=== PATIENT | female | born 1935 | race Caucasian/White ===

== ENCOUNTER 2017-08-24 19:36 | Emergency (ER) | payer MEDICARE, BC ==
[~2017-08-24] VITALS: Ht 157.5 cm; Wt 61.2 kg
[2017-08-24] MEDS ORDERED: FERROUS SULFATE 325 MG (20:10)
[2017-08-24] MEDS ORDERED: LAMOTRIGINE 100 MG (20:10)
[2017-08-24] MEDS ORDERED: CLINDAMYCIN HCL 150 MG CAPSULE PO ONE (20:15)
--- NOTE | 2017-08-24 20:28 | NUR ---
Patient discharged to home in stable conditon. Written and verbal after care instructions given. Patient verbalizes understanding of instructions.
[2017-08-24] MEDS ORDERED: CLINDAMYCIN HCL 300 MG CAPSULE ONE (20:36)
[2017-09-02] MEDS ORDERED: LACT1CAP57 PO (11:43)
[2017-09-02] MEDS ORDERED: LISI1TAB9 PO (11:45)
== END 2017-08-24 20:29 | disposition home or self-care (01) ==
LOC: ER 19:36
DX: L03.211 Cellulitis of face (principal); Z88.6 Allergy status to analgesic agent
CPT/HCPCS: 99283; A4663

== ENCOUNTER 2017-08-27 00:28 | Inpatient (IN) | payer MEDICARE, BC ==
[~2017-08-27] VITALS: Ht 157.5 cm; Wt 62.3 kg
[~2017-08-27 00:28] MED LIST: FERROUS SULFATE 325 MG; LAMOTRIGINE 100 MG
[2017-08-27] MEDS ORDERED: CLIN300C11 PO (00:42)
--- NOTE | 2017-08-27 01:00 | NUR ---
PATIENT WALKED INTO ER C/O LEFT CHIN CELLULITIS. PATIENT WAS SEEN HERE ON 08/24/17 FOR SAME COMPLAINT.CAME BACK FOR REDNESS AND SWELLING WORSENING
[2017-08-27] MEDS ORDERED: TDAP DIPH,PERTUSS,TET VAC/PF 0.5 ML DISP.SYRIN IM ONE ×2 (01:15→01:29)
[2017-08-27] MEDS ORDERED: VANCOMYCIN 1G/D5W 200 ML PIGGYBACK IV ONE (01:15)
[2017-08-27] MEDS ORDERED: CLINDAMYCIN PHOSPHATE IV 900 MG in IV DEXTROSE 5% 100 ML IV ONE (01:15)
[2017-08-27] MEDS ORDERED: CLINDAMYCIN PHOSPHATE 900 MG/6 ML VIAL ONE (01:27)
[2017-08-27 01:32] LABS: CARBON DIOXIDE 30 mmol/L (21-32); CHLORIDE 101 mmol/L (98-107); CREATININE 0.7 mg/dL (0.6-1.3); GLUCOSE 104 mg/dL (74-106); POTASSIUM 3.5 mmol/L (3.5-5.1); UREA NITROGEN, BLOOD 12 mg/dL (7-18)
[2017-08-27 01:37] LABS: ALANINE AMINOTRANSFERASE 16 U/L (14-59); ALKALINE PHOSPHATASE 70 U/L (50-136); ASPARTATE AMINOTRANSFERASE 11 U/L (15-37); BILIRUBIN,DIRECT 0.1 mg/dL (0.0-0.2); BILIRUBIN,TOTAL 0.4 mg/dL (0.2-1.0); TOTAL PROTEIN, SERUM 8.2 g/dL (6.4-8.2)
[2017-08-27 01:42] LABS: BASOPHILS % (AUTO) 0.5 % (0.0-2.0); EOSINOPHILS # (AUTO) 0.2 K/uL (0.0-0.7); EOSINOPHILS % (AUTO) 1.9 % (0.0-7.0); HEMATOCRIT 41.9 % (37-47); HEMOGLOBIN 14.3 G/DL (12.0-16.0); LYMPHOCYTES # (AUTO) 2.2 K/UL (0.8-4.8); LYMPHOCYTES % (AUTO) 23.4 % (20.5-51.5); MEAN CORPUSCULAR HEMOGLOBIN 30.4 UUG (27.0-31.0); MEAN CORPUSCULAR HGB CONC 34 g/dL (32.0-37.0); MEAN CORPUSCULAR VOLUME 89.1 FL (81.0-99.0); MONOCYTES # (AUTO) 0.6 K/UL (0.1-1.30); MONOCYTES % (AUTO) 6.6 % (0.0-11.0); NEUTROPHILS # (AUTO) 6.5 K/UL (1.8-8.9); NEUTROPHILS % (AUTO) 67.6 % (38.5-71.5); PLATELET COUNT (AUTO) 315 K/UL (150-450); RED BLOOD CELL COUNT(AUTO) 4.71 MIL/UL (4.2-5.4); WHITE BLOOD COUNT (AUTO) 9.5 K/UL (4.0-11.2)
[2017-08-27] MEDS ORDERED: VANCOMYCIN IV 200 ML ONE (01:52)
[2017-08-27] MEDS ORDERED: IOHEXOL 300MG/ML 100 ML INFUS..BTL ONE (02:12)
[2017-08-27] MEDS ORDERED: IV NORMAL SALINE 250 ML IV ONE (02:12)
--- NOTE | 2017-08-27 03:18 | NUR ---
TRANSFERED TO 2ND FLOOR MED SURG VIA WHEELCHAIR
--- NOTE | 2017-08-27 03:25 | NUR ---
RECEIVED PATIENT FROM ER VIA WHEELCHAIR. PATIENT IS ALERT, RESPONSIVE, AMBULATORY, IN NO ACUTE DISTRESS. PATIENT IS ADMITTED TO MED SURG UNDER THE CARE OF NAYLA MOMIN DNP. DX: FACIAL CELLULITIS. BELONGING LIST DONE. ADMISSION PROCESS AND CARE PLAN INITIATED. SAFETY MEASURES IN PLACE. WILL CALL MD FOR NEW ADMISSION ORDERS.
[2017-08-27 03:30] VITALS: BP 159/82
[2017-08-27] MEDS ORDERED: MORPHINE SULFATE 2 MG/1 ML DISP.SYRIN IV PRN (04:00)
[2017-08-27] MEDS ORDERED: PIPERACILLIN/TAZOBACTAM/D5W 50 ML IV SCH (04:00)
[2017-08-27] MEDS ORDERED: Z GUARD REMEDY PASTE 57 GM TUBE TOP PRN (04:00)
[2017-08-27] MEDS ORDERED: ZOLPIDEM 5 MG TABLET PO PRN (04:00)
[2017-08-27] MEDS ORDERED: ONDANSETRON 4 MG/2 ML VIAL IV PRN (04:00)
[2017-08-27] MEDS ORDERED: PIPERACILLIN/TAZOBACTAM/D5W 50 ML IV ONE (05:00)
--- NOTE | 2017-08-27 06:37 | NUR ---
PT SLEPT INTERMITTENTLY, IN NO ACUTE DISTRESS. PER PATIENT, SHE HAS BEEN TAKING LAMOTRIGINE FOR SEIZURES. PATIENT STATED THAT SHE DID NOT MENTION HER HISTORY OF SEIZURES WHILE SHE WAS ADMITTED IN THE ER. SEIZURE PRECAUTION IN PLACE. WILL MONITOR AND ENDORSE TO ONCOMING SHIFT RN.
--- NOTE | 2017-08-27 07:20 | NUR ---
Received report from slot shift supervisor nurse, patient in bed asleep, no evidence of distress noted. Bed in low position, side rails up x2, bed alarm on.
[2017-08-27] MEDS ORDERED: KETOROLAC TROMETHAMINE 15 MG INJ IVP PRN (09:45)
[2017-08-27 11:22] VITALS: BP 133/31
[2017-08-27] MEDS: PIPERACILLIN/TAZOBACTAM/D5W 50 ML IV SCH ×2 (12:00→18:29)
[2017-08-27] MEDS ORDERED: FERR325T6 PO (15:20)
[2017-08-27] MEDS ORDERED: [UNRECOGNIZED DRUG - CODE] PO (15:20)
[2017-08-27 15:44] VITALS: BP 132/73
--- NOTE | 2017-08-27 17:15 | NUR ---
DR BRAGG ID PHYSICIAN VISITED PATIENT. WAS NOTIFIED THAT THE DAUGHTER WANTED TO SPEAK WITH HIM IN ORDER TO GIVE A COMPLETE HISTORY PATIENT IS VERY FORGETFUL AT TIMES.
--- NOTE | 2017-08-27 19:30 | NUR ---
Received patient laying comfortably on bed. HOB elevated. No acute distress noted. A&O x 4. Noted Red lump on the chin, no c/o of pain at the moment. No drainage coming from the lump. IV access on the Left AC patent and intact. Patient is ambulatory. Safety initiated. Call light within reach. Will continue to monitor.
[2017-08-27 20:00] VITALS: BP 137/70
[2017-08-28] MEDS: PIPERACILLIN/TAZOBACTAM/D5W 50 ML IV SCH ×4 (00:04→17:31)
--- NOTE | 2017-08-28 05:58 | NUR ---
No changes t/o shift. No acute distress noted. Patient slept t/o shift. Patient accidentally scratch a small red bump on chin, was able to collect a specimen for cx. Vital signs stable. IV on the left AC got dislodge, reinserted a new one on the left wrist. All meds given as ordered. All needs met. Safety and comfort measures maintained t/o shift.
[2017-08-28 06:10] VITALS: BP 125/73
--- NOTE | 2017-08-28 07:15 | NUR ---
RECEIVED REPORT FROM LOOM BLOWER NURSE, PATIENT IN BED ASLEEP, NO EVIDENCE OF DISTRESS NOTED, BED IN LOW POSITION SIDE RAILS UP X2.
[2017-08-28 07:49] LABS: CARBON DIOXIDE 30 mmol/L (21-32); CHLORIDE 107 mmol/L (98-107); CHOLESTEROL 145 mg/dL (<200); CREATININE 0.8 mg/dL (0.6-1.3); GLUCOSE 94 mg/dL (74-106); HDL CHOLESTEROL 71 mg/dL (40-60); MAGNESIUM 2.1 mg/dL (1.8-2.4); PHOSPHOROUS 3.5 mg/dL (2.5-4.9); POTASSIUM 3.8 mmol/L (3.5-5.1); TRIGLYCERIDES 48 MG/DL (30-150); UREA NITROGEN, BLOOD 13 mg/dL (7-18)
[2017-08-28 07:55] LABS: BASOPHILS # (AUTO) 0.1 K/uL (0.0-8.0); EOSINOPHILS # (AUTO) 0.3 K/uL (0.0-0.7); EOSINOPHILS % (AUTO) 4.3 % (0.0-7.0); HEMATOCRIT 35.2 % (31.2-41.9); HEMOGLOBIN 12.3 g/dL (10.9-14.3); LYMPHOCYTES # (AUTO) 1.8 K/uL (20.0-40.0); LYMPHOCYTES % (AUTO) 29.7 % (20.5-51.5); MEAN CORPUSCULAR HEMOGLOBIN 30.4 uug (24.7-32.8); MEAN CORPUSCULAR HGB CONC 35 g/dL (32.3-35.6); MEAN CORPUSCULAR VOLUME 86.8 fL (75.5-95.3); MONOCYTES # (AUTO) 0.5 K/uL (2.0-10.0); MONOCYTES % (AUTO) 7.9 % (0.0-11.0); NEUTROPHILS # (AUTO) 3.5 K/uL (1.8-8.9); NEUTROPHILS % (AUTO) 57.1 % (38.5-71.5); PLATELET COUNT (AUTO) 245 K/uL (179-408); RED BLOOD CELL COUNT(AUTO) 4.06 MIL/uL (3.63-4.92)
[2017-08-28 07:57] LABS: THYROID STIMULATING HORMONE 2.439 mIU/mL (0.358-3.740); WHITE BLOOD COUNT (AUTO) 6.2 K/uL (3.8-11.8)
[2017-08-28] MEDS: VANCOMYCIN IV 1 G in PREMIXED 0 EACH IV SCH (08:00)
[2017-08-28 08:17] LABS: ALANINE AMINOTRANSFERASE 14 U/L (14-59); ALKALINE PHOSPHATASE 52 U/L (50-136); ASPARTATE AMINOTRANSFERASE 12 U/L (15-37); BILIRUBIN,TOTAL 0.4 mg/dL (0.2-1.0); TOTAL PROTEIN, SERUM 6.3 g/dL (6.4-8.2)
--- NOTE | 2017-08-28 09:50 | NUR ---
Clinical pharmacy note-Vancomycin dosing per pharmacy Subjective: Start Vancomycin dosing on this 82 yo female patient for abscess. patient recieved vanco 1gm on 08/27 at 0200. Objective: BUN 12 Scr 0.7 WBC 9.5 Temp 98.4 Assessment/Plan; Will start vanco 1000 mg IVPB q28hr for predicted vanco trough level of 16 mcg/ml at steady state. 1st dose is due today at 0800. Will check vanco trough level before 4th dose (not yet ordered). Will monitor renal function & adjust the dose if needed. will continue to follow up.
--- NOTE | 2017-08-28 11:00 | NUR ---
PATIENT APPEARS TO BE AGITATED, ALSO APPEARS TO BE CONFUSED ABOUT MEDICATIONS THAT SHE HAD ALREADY TAKEN. PATIENT DOES NOT UNDERSTAND WHY SHE IS STILL HERE AFTER BEING EXPLAINED IT MULTIPLE TIMES.
[2017-08-28 11:17] VITALS: BP 162/54
[2017-08-28] MEDS: LAMOTRIGINE 100 MG TABLET PO SCH ×2 (14:14→20:45)
[2017-08-28] MEDS: FERROUS SULFATE 325 MG TABEC PO SCH (14:14)
[2017-08-28 14:19] LABS: *BILIRUBIN,URIN NEGATIVE (NEGATIVE); *BLOOD, URINE NEGATIVE (NEGATIVE); *CLARITY,URINE CLEAR (CLEAR); *COLOR,URINE YELLOW (YELLOW); *KETONES,URINE NEGATIVE (NEGATIVE); *PROTEIN,URINE NEGATIVE (NEGATIVE); *UROBILINOGEN,URINE 0.2 E.U./dl (NORMAL); LEUKOCYTE ESTERASE ,URINE TRACE (NEGATIVE); NITRITE, URINE NEGATIVE (NEGATIVE); UGLUCOSE NEGATIVE (NEGATIVE)
[2017-08-28 14:29] LABS: BACTERIA,URINE NONE SEEN /HPF (NONE SEEN); RBC,URINE 0-3 /HPF (0-3); SQUAMOUS EPITHELIAL CELL,UR FEW /HPF (NONE SEEN)
[2017-08-28 15:07] VITALS: BP 149/74
--- NOTE | 2017-08-28 18:13 | NUR ---
PATIENT APPEARS TO BE CALMER THIS EVENING, READING A BOOK AND DRINKING HER COFFEE. BED IN LOW POSITION, SIDE RAILS UP X2. NO EVIDENCE OF DISTRESS NOTED AT THIS TIME.
--- NOTE | 2017-08-28 19:30 | NUR ---
Received patient laying comfortably in bed. No acute distress noted. Patient is reading a book. No C/O pain or discomfort. Noted bump on the left chin and lower chin. Safety initiated. Call light within reach. Will continue to monitor.
[2017-08-28 20:00] VITALS: BP 166/81
[2017-08-28] MEDS: LACTOBACILLUS RHAMNOSUS GG 1 EACH CAPSULE PO SCH (20:43)
--- NOTE | 2017-08-28 21:30 | NUR ---
Plastic Surgeon Dr. Burks at bedside.
[2017-08-29] MEDS: PIPERACILLIN/TAZOBACTAM/D5W 50 ML IV SCH ×4 (00:49→20:55)
--- NOTE | 2017-08-29 06:05 | NUR ---
No changes t/o shift. Patient slept intermittently t/o shift. No acute distress noted. No C/O pain or discomfort at this time. IV access on the Left wrist patent and intact. Urinating well. Vital signs stable. All meds given as ordered. All needs met.
[2017-08-29 07:00] LABS: BASOPHILS % (AUTO) 0.7 % (0.0-2.0); EOSINOPHILS # (AUTO) 0.3 K/uL (0.0-0.7); EOSINOPHILS % (AUTO) 5.4 % (0.0-7.0); HEMATOCRIT 35.3 % (37-47); HEMOGLOBIN 12.1 G/DL (12.0-16.0); LYMPHOCYTES # (AUTO) 1.7 K/UL (0.8-4.8); MEAN CORPUSCULAR HEMOGLOBIN 29.8 UUG (27.0-31.0); MEAN CORPUSCULAR HGB CONC 34 g/dL (32.0-37.0); MEAN CORPUSCULAR VOLUME 87.2 FL (81.0-99.0); MONOCYTES # (AUTO) 0.5 K/UL (0.1-1.30); MONOCYTES % (AUTO) 8.5 % (0.0-11.0); NEUTROPHILS % (AUTO) 54.4 % (38.5-71.5); PLATELET COUNT (AUTO) 253 K/UL (150-450); RED BLOOD CELL COUNT(AUTO) 4.05 MIL/UL (4.2-5.4); WHITE BLOOD COUNT (AUTO) 5.5 K/UL (4.0-11.2)
[2017-08-29 07:04] VITALS: BP 142/65
[2017-08-29 07:04] LABS: CARBON DIOXIDE 30 mmol/L (21-32); CHLORIDE 108 mmol/L (98-107); CREATININE 0.7 mg/dL (0.6-1.3); GLUCOSE 90 mg/dL (74-106); POTASSIUM 3.6 mmol/L (3.5-5.1); UREA NITROGEN, BLOOD 14 mg/dL (7-18)
--- NOTE | 2017-08-29 07:15 | NUR ---
RECEIVED REPORT FROM OPTICAL MANAGER NURSE, PATIENT IN BED AWAKE, NO EVIDENCE OF DISTRESS NOTED. BED IN LOW POSITION, SIDE RAILS UP X2.
[2017-08-29] MEDS: LACTOBACILLUS RHAMNOSUS GG 1 EACH CAPSULE PO SCH ×2 (08:24→20:55)
[2017-08-29] MEDS: FERROUS SULFATE 325 MG TABEC PO SCH (08:24)
[2017-08-29] MEDS: LAMOTRIGINE 100 MG TABLET PO SCH ×2 (08:27→18:45)
--- NOTE | 2017-08-29 08:27 | NUR ---
PATIENT REFUSED TO TAKE THE LAMOTRIGINE BECAUSE SHE STATES THAT SHE TAKES IT AT NIGHT OR SHE HAS ILL EFFECTS DURING THE DAY.
[2017-08-29] MEDS: VANCOMYCIN IV 1 G in PREMIXED 0 EACH IV SCH (12:00)
[2017-08-29 12:03] VITALS: BP 166/79
--- NOTE | 2017-08-29 14:19 | NUR ---
Clinical pharmacy note-Vancomycin dosing per pharmacy Subjective: To continue Vancomycin dosing on this 82 yo female patient for abscess. patient recieved vanco 1gm on 08/27 at 0200. Objective: BUN 14 Scr 0.7 WBC 5.5 Temp 98 Assessment/Plan; Will continue vanco 1000 mg IVPB q28hr for predicted vanco trough level of 16 mcg/ml at steady state. 2nd dose due today at 1200. Will check vanco trough level before 4th dose (not yet ordered). Will monitor renal function & adjust the dose if needed. will continue to follow up.
[2017-08-29 16:14] VITALS: BP 180/88
[2017-08-29] MEDS: hydrALAZINE HCL 25 MG TABLET PO PRN ×2 (17:13→20:57)
--- NOTE | 2017-08-29 19:30 | NUR ---
PT RECEIVED IN CHAIR, AWAKE. A/OX4. ABLE TO MAKE NEEDS KNOWN. BP ELEVATED AT 160/77. BP MED GIVEN AT 1700. WILL ADMIN HYDRALAZINE ORDERED, WHEN DUE. NO ACUTE DISTRESS NOTED. NO C/O PAIN AT THIS TIME. IV FOUND INFILTRATED, NEW IV START NEEDED. ISOLATION PRECAUTIONS IN PLACE, MRSA NARES. SAFETY MEASURES IMPLEMENTED. CALL LIGHT WITHIN REACH.
--- NOTE | 2017-08-29 19:40 | NUR ---
PATIENT HAS BEEN COOPERATIVE WITH CARE, AND IN BETTER SPIRITS TODAY. PATIENT IS AMBULATING IN ROOM. NEW IV PLACED AND FLUSHED.
[2017-08-29 20:43] VITALS: BP 160/77
[2017-08-29] MEDS: MUPIROCIN 2% OINT 22 GM TUBE NS SCH (20:55)
[2017-08-30] MEDS: PIPERACILLIN/TAZOBACTAM/D5W 50 ML IV SCH ×5 (00:39→23:03)
[2017-08-30 04:00] VITALS: BP 141/65
[2017-08-30 06:26] LABS: BASOPHILS % (AUTO) 0.7 % (0.0-2.0); EOSINOPHILS # (AUTO) 0.3 K/uL (0.0-0.7); EOSINOPHILS % (AUTO) 5.6 % (0.0-7.0); HEMATOCRIT 34.1 % (37-47); HEMOGLOBIN 11.5 G/DL (12.0-16.0); LYMPHOCYTES # (AUTO) 1.8 K/UL (0.8-4.8); LYMPHOCYTES % (AUTO) 30.1 % (20.5-51.5); MEAN CORPUSCULAR HEMOGLOBIN 30.1 UUG (27.0-31.0); MEAN CORPUSCULAR HGB CONC 34 g/dL (32.0-37.0); MEAN CORPUSCULAR VOLUME 89.2 FL (81.0-99.0); MONOCYTES # (AUTO) 0.5 K/UL (0.1-1.30); NEUTROPHILS # (AUTO) 3.3 K/UL (1.8-8.9); NEUTROPHILS % (AUTO) 54.6 % (38.5-71.5); PLATELET COUNT (AUTO) 268 K/UL (150-450); RED BLOOD CELL COUNT(AUTO) 3.82 MIL/UL (4.2-5.4); WHITE BLOOD COUNT (AUTO) 5.9 K/UL (4.0-11.2)
[2017-08-30 06:36] LABS: CARBON DIOXIDE 29 mmol/L (21-32); CHLORIDE 107 mmol/L (98-107); CREATININE 0.7 mg/dL (0.6-1.3); GLUCOSE 101 mg/dL (74-106); POTASSIUM 3.6 mmol/L (3.5-5.1); UREA NITROGEN, BLOOD 13 mg/dL (7-18)
--- NOTE | 2017-08-30 06:45 | NUR ---
END OF SHIFT NOTES. PT SLEPT WELL THROUGHOUT SHIFT. IN STABLE CONDITION. IV ABX INFUSED. ISOLATION MAINTAINED. ALL NEEDS ATTENDED. SAFETY MAINTAINED. CALL LIGHT WITHIN REACH.
--- NOTE | 2017-08-30 08:00 | NUR ---
RECEIVED PATIENT AWAKE ALERT AND ORIENTED.SHE IS CURRENTLY ON CONTACT ISOLATION AND PRECAUTION FOR MRSA IN HER NARES EDUCATED AND SHE EXPRESSED UNDERSTANDING.REMAIN ON ATB ORDERED WITH NO ADVERSE OR ALLERGIC REACTIONS AT THIS TIME.TOLERATING HER DIET ORDERED WITH NO C/O PAIN AT THIS TIME MADE COMFORTABLE AND WILL CONTINUE TO OBSERVE.
[2017-08-30] MEDS: LACTOBACILLUS RHAMNOSUS GG 1 EACH CAPSULE PO SCH ×2 (08:52→21:06)
[2017-08-30] MEDS: FERROUS SULFATE 325 MG TABEC PO SCH (08:52)
[2017-08-30] MEDS: MUPIROCIN 2% OINT 22 GM TUBE NS SCH ×2 (09:05→21:08)
[2017-08-30 11:49] VITALS: BP 141/67
--- NOTE | 2017-08-30 14:00 | NUR ---
PATIENTS DAUGHTER YANA HERE SPOKE WITH DR SNIDER AT LENGTH PATIENT REMAIN ON IV ANTIBIOTICS ORDERED WITH NO ADVERSE OR ALLERGIC REACTIONS AT THIS TIME APPETITE IS GOOD FOR MEALS.
--- NOTE | 2017-08-30 15:18 | NUR ---
Clinical pharmacy note-Vancomycin dosing per pharmacy Subjective: To continue Vancomycin dosing on this 82 yo female patient for abscess. Objective: BUN 13 Scr 0.7 WBC 5.9 Temp 98 .8 Assessment/Plan; Will continue vanco 1000 mg IVPB q28hr for predicted vanco trough level of 16 mcg/ml at steady state. 3rd dose due today at 1600. Will check vanco trough level before 4th dose (not yet ordered). Will monitor renal function & adjust the dose if needed. will continue to follow up.
[2017-08-30] MEDS: VANCOMYCIN IV 1 G in PREMIXED 0 EACH IV SCH (15:44)
[2017-08-30 15:50] VITALS: BP 153/69
[2017-08-30] MEDS: LAMOTRIGINE 100 MG TABLET PO SCH ×2 (17:28→17:45)
--- NOTE | 2017-08-30 17:46 | NUR ---
PATIENT REFUSED HER LAMOTRIGINE STATED THAT SHE ALWAYS TAKES IT LAST THING AT NIGHT BEFORE SHE GOES TO SLEEP WILL ENDORSE TO THE NEXT SHIFT TO GIVE IT TO HER UNSCHEDULED AND WILL INFORM THE PHARMACY FOR TOME CHANGE.
--- NOTE | 2017-08-30 19:35 | NUR ---
PT RECEIVED IN BED, AWAKE. A/OX4. ABLE TO MAKE NEEDS KNOWN. IN STABLE CONDITION. NO ACUTE DISTRESS NOTED. NO C/O PAIN AT THIS TIME. IV INTACT AND PATENT. KEPT TKO AT 3CC/HR. ISOLATION PRECAUTION IN PLACE. SAFETY MEASURES IMPLEMENTED. CALL LIGHT WITHIN REACH
[2017-08-30 20:00] VITALS: BP 173/80
[2017-08-30] MEDS: hydrALAZINE HCL 25 MG TABLET PO PRN (21:59)
[2017-08-30] MEDS ORDERED: LAMOTRIGINE 100 MG TABLET PO ONE (22:15)
[2017-08-31 04:00] VITALS: BP 144/62
[2017-08-31] MEDS: PIPERACILLIN/TAZOBACTAM/D5W 50 ML IV SCH ×4 (05:31→23:10)
--- NOTE | 2017-08-31 06:25 | NUR ---
END OF SHIFT NOTES. PT SLEPT INTERMITTENTLY THROUGHOUT SHIFT. IN STABLE CONDITION. BP WNL. IV ABX INFUSED. TKO 3CC CONTINUED. ISOLATION MAINTAINED. ALL NEEDS ATTENDED. SAFETY MAINTAINED. CALL LIGHT WITHIN REACH.
--- NOTE | 2017-08-31 07:46 | NUR ---
PATIENT IS AWAKE ALERT AND ORIENTED DENIES PAIN OR DISCOMFORTS AT THIS TIME REMAIN ON CONTACT ISOLATION AND PRECAUTION FOR MRSA NARES ORDERED PATIENT EDUCATED ON ISOLATION PROTOCOL AND SHE EXPRESSED UNDERSTANDING.CONTINUES ON ANTIBIOTICS ORDERED WITH NO ADVERSE OR ALLERGIC REACTIONS AT THIS TIME.MADE COMFORTABLE AND WILL CONTINUE TO OBSERVE.
[2017-08-31] MEDS: FERROUS SULFATE 325 MG TABEC PO SCH (09:17)
[2017-08-31] MEDS: LACTOBACILLUS RHAMNOSUS GG 1 EACH CAPSULE PO SCH ×2 (09:18→20:36)
[2017-08-31] MEDS: MUPIROCIN 2% OINT 22 GM TUBE NS SCH ×2 (09:19→20:36)
--- NOTE | 2017-08-31 11:31 | NUR ---
Clinical pharmacy note-Vancomycin dosing per pharmacy Subjective: To continue Vancomycin dosing on this 82 yo female patient for abscess. Objective: BUN 13 Scr 0.7 WBC 5.9 Temp 98 .8 Assessment/Plan; Will continue vanco 1000 mg IVPB q28hr for predicted vanco trough level of 16 mcg/ml at steady state. Will check vanco trough level before 4th dose (ordered for 08/31 at 1930- RN has been informed to hold 2000 dose if trough above 20 mcg/ml). Pharmacy shall check level in am & adjust the dose if needed. Will continue to follow up.
[2017-08-31 11:49] VITALS: BP 130/78
--- NOTE | 2017-08-31 14:00 | NUR ---
REMAIN ON ANTIBIOTICS ORDERED WITH NO ADVERSE OR ALLERGIC REACTIONS AT THIS TIME.DENIES PAIN OR DISCOMFORTS AT THIS TIME.APPETITE REMAINS GOOD AT THIS TIME.
[2017-08-31 15:45] VITALS: BP 154/81
[2017-08-31] MEDS: hydrALAZINE HCL 25 MG TABLET PO PRN ×2 (16:39→23:09)
--- NOTE | 2017-08-31 16:45 | NUR ---
BLOOD PRESSURE AT THIS TIME IS 154/87 HR IS 71 PATIENT HAS NO SYMPTOMS MEDICATED WITH HYDRALAZINE ORDERED AND WILL OBSERVE.
--- NOTE | 2017-08-31 18:00 | NUR ---
RESTING IN ROOM DENIES PAIN OR DISCOMFORTS AT THIS TIME.
--- NOTE | 2017-08-31 19:35 | NUR ---
PT RECEIVED IN BED, AWAKE. A/OX4. ABLE TO MAKE NEEDS KNOWN. BP ELEVATED AT 170/68, WILL ADMIN BP MEDICATION ORDERED. OTHERWISE, IN NO ACUTE DISTRESS. NO C/O PAIN, ON RA, TOLERATING WELL. IVF TKO 3CC/HR. ISOLATION PRECAUTION CONTINUED. SAFETY MEASURES IMPLEMENTED. CALL LIGHT WITHIN REACH.
[2017-08-31 20:30] VITALS: BP 170/68
[2017-08-31] MEDS: VANCOMYCIN IV 1 G in PREMIXED 0 EACH IV SCH (20:35)
[2017-08-31] MEDS: LAMOTRIGINE 100 MG TABLET PO SCH (20:36)
[2017-09-01] MEDS: PIPERACILLIN/TAZOBACTAM/D5W 50 ML IV SCH ×4 (05:00→23:02)
--- NOTE | 2017-09-01 06:24 | NUR ---
END OF SHIFT NOTES. PT SLEPT WELL THROUGHOUT SHIFT. IN STABLE CONDITION. BP WNL. IV ABX INFUSED. IV REMAINS TKO 3CC/HR. ISOLATION MAINTAINED. ALL NEEDS ATTENDED. SAFETY MAINTAINED. CALL LIGHT WITHIN REACH.
[2017-09-01 06:26] VITALS: BP 142/68
--- NOTE | 2017-09-01 07:45 | NUR ---
RECEIVED IN BED WITH EYES CLOSED BUT ABLE TO AROUSE PATIENT AND SHE IS ALERT AND ORIENTED WHEN AWAKE DENIES PAIN OR DISCOMFORTS ON ROOM AIR WITH NO SHORTNESS OF BREATH REMAIN ON ANTIBIOTICS ORDERED WITH NO ADVERSE OR ALLERGIC REACTIONS AT THIS TIME MADE COMFORTABLE NOT IN DISTRESS AT THIS TIME
[2017-09-01] MEDS: FERROUS SULFATE 325 MG TABEC PO SCH (08:30)
[2017-09-01] MEDS: LACTOBACILLUS RHAMNOSUS GG 1 EACH CAPSULE PO SCH ×2 (08:30→20:51)
[2017-09-01] MEDS: MUPIROCIN 2% OINT 22 GM TUBE NS SCH ×2 (08:31→20:52)
--- NOTE | 2017-09-01 12:46 | NUR ---
CALL RECEIVED FROM PATIENTS DAUGHTER YANA WANTING TO KNOW IF PATIENT HAS BEEN SEEN BY THE ORAL SURGEON AND THE ENT AND I TOLD HER THAT PATIENT WAS ONLY SEEN BY THE PLASTIC SURGEON AND SHE STATED THAT SHE WAS PROMISED THAT PATIENT WILL BE SEEN BY THESE SPECIALISTS TODAY SHE THEN STATED THAT SHE WILL LIKE HER MOTHER TO BE TRANSFERED TO ANOTHER HOSPITAL SO I TRANSFERED HER CALL TO THE CASE/NET UI DEVELOPER/DISCHARGE PLANNING AND DR SNIDER IS MADE AWARE.
[2017-09-01 13:36] VITALS: BP 137/72
[2017-09-01 16:38] VITALS: BP 166/77
--- NOTE | 2017-09-01 16:39 | NUR ---
Clinical pharmacy note-Vancomycin dosing per pharmacy Subjective: To continue Vancomycin dosing on this 82 yo female patient for abscess. Objective: BUN 13(08/30) Scr 0.7 (08/30) WBC 5.9(08/30) Temp 98 Vancomycin trough 3.8 on 08/31 at 1930 Vancomycin random 5.8 today at 1500(19 hrs post dose) Assessment/Plan; Will change vanco 1000 mg IVPB q28hr to every 13 hrs for predicted vanco trough level of 16 mcg/ml at steady state. Will check vanco trough level before 4th dose (not ordered yet). Pharmacy shall check level in am & adjust the dose if needed. Will continue to follow up.
--- NOTE | 2017-09-01 17:30 | NUR ---
PATIENTS DAUGHTER ROSANA ON THE PHONE AND REQUESTING FOR MEDICAL RECORDS AND I INFORMED HER THE PROCEDURE AND PROCESS TO GET THE MEDICAL RECORDS SHE WILL NEED TO FILL OUT THE FORM FOR RELEASE OF MEDICAL RECORDS WHICH WILL THEN BE PLACED IN THE CHART UPON DISCHARGE THE MEDICAL RECORDS WILL COMPILE ALL THE RECORDS AND EITHER SEND THEM TO YOU OR YOU CAN PICK THEM UP AND THE PATIENTS DAUGHTER GOT UPSET AND STATED TO TALK TO THE DOCTOR OR THE FILTER PLANT SUPERVISOR SO I CONNECTED HER TO THE CHARGE NURSE.
--- NOTE | 2017-09-01 18:00 | NUR ---
RESTING IN HER ROOM DENIES PAIN OR DISCOMFRTS IV ANTIBIOTICS REMAINS IN PROGRESS ORDERED WITH NO ADVERSE OR ALLERGIC REACTIONS AT THIS TIME WILL CONTINUE TO OBSERVE.
[2017-09-01] MEDS: VANCOMYCIN IV 1 G in PREMIXED 0 EACH IV SCH (18:25)
--- NOTE | 2017-09-01 18:46 | NUR ---
FORM THE RELEASE OF THE MEDICAL RECORDS GIVEN TO THE PATIENT AT THIS TIME FOR HER TO FILL UP FOR THE MEDICAL RECORDS.
[2017-09-01 20:00] VITALS: BP 147/68
[2017-09-01] MEDS: LAMOTRIGINE 100 MG TABLET PO SCH (20:51)
[2017-09-02] MEDS: PIPERACILLIN/TAZOBACTAM/D5W 50 ML IV SCH ×2 (05:06→11:35)
[2017-09-02] MEDS: VANCOMYCIN IV 1 G in PREMIXED 0 EACH IV SCH (06:02)
[2017-09-02 06:12] VITALS: BP 146/63
--- NOTE | 2017-09-02 06:33 | NUR ---
PT SLEPT INTERMITTENTLY, IN NO ACUTE DISTRESS. IV ANTIBIOTICS ADMINISTERED ORDERED, NO ADVERSE REACTION NOTED. FACIAL CELLULITIS ON LEFT LOWER CHIN NO REDNESS, NO NOTED DRAINAGE. ORAL CARE PROVIDED, ASPIRATION PRECAUTION, SEIZURE PRECAUTION. SAFETY MEASURES IN PLACE, WILL CONTINUE TO MONITOR.
--- NOTE | 2017-09-02 07:30 | NUR ---
PATIENT IS AWAKE ALERT AND AWARE GETS FORGETFUL AT TIMES CURRENTLY ON IV ANTIBIOTICS ORDERED WITH NO ADVERSE OR ALLERGIC REACTIONS AT THIS TIME IV FLUIDS IS IN PROGRESS ORDERED.TELEMETRY MONITORY IN PROGRESS WIT SR WITH PACS.DENIES DISCOMFORTS AT THIS TIME. Addendum: 09/02/17 at 1003 by BOBBY POWELL RN WRONG PATIENT WRONG ENTRY
[2017-09-02] MEDS: FERROUS SULFATE 325 MG TABEC PO SCH (08:45)
[2017-09-02] MEDS: LACTOBACILLUS RHAMNOSUS GG 1 EACH CAPSULE PO SCH (08:45)
[2017-09-02] MEDS: MUPIROCIN 2% OINT 22 GM TUBE NS SCH (08:47)
--- NOTE | 2017-09-02 10:01 | NUR ---
PATIENT SEEN AND EXAMINED BY MYKE SERRANO NP MAG IS 1.5 WITH NEW ORDERS AND NOTED.ALSO CHANGE NOTED ON THE RATE OF THE IVF. Addendum: 09/02/17 at 1003 by BOBBY POWELL RN WRONG PATIENT WRONG ENTRY
--- NOTE | 2017-09-02 10:30 | NUR ---
CALL RECEIVED FROM PATIENTS DAUGHTER ROSANA STATED THAT SHE WILL BE PICKING UP HER MOTHER AT 1200 AND THAT SHE WAS PROMISED THAT HER MOTHER WILL BE READY AT 1200.INFORMED HER THAT DR VIDAL HAS NOT SEEN PATIENT YET TODAY AND SHE GOT UPSET AND WANTED TO TALK TO THE ADMINISTRATION BECAUSE SHE STATED THAT SHE WAS PROMISED TO SOLAR MANAGER HER MOTHER.CALLED DR VIDAL AND LEFT HIM A MESSAGE OF THE DAUGHTERS INTENT TO SOLAR MANAGER THE PATIENT AT NOON TODAY.
[2017-09-02 11:13] VITALS: BP 140/71
[2017-09-02] MEDS ORDERED: LACT1CAP57 PO (11:43)
[2017-09-02] MEDS ORDERED: LISI1TAB9 PO (11:45)
--- NOTE | 2017-09-02 12:36 | NUR ---
Clinical pharmacy note-Vancomycin dosing per pharmacy Subjective: To continue Vancomycin dosing on this 82 yo female patient for abscess. Objective: BUN 13(08/30) Scr 0.7 (08/30) WBC 5.9(08/30) Temp 98.6 Vancomycin trough 3.8 on 08/31 at 1930 Vancomycin random 5.8 today at 1500(19 hrs post dose) Assessment/Plan; Will continue same dose of vancomycin 1gm IV q13h for today. 3rd dose of this regimen is due today at 1900. Will check vanco trough level before 4th dose (ordered for 09/02 at 0730). Pharmacy shall check level in am & adjust the dose if needed. Will continue to follow up.
--- NOTE | 2017-09-02 13:10 | NUR ---
PATIENTS DISCHARGED PICKED UP BY HER DAUGHTER RACHEL IN SATISFACTORY CONDITION WITH DISCHARGE INSTRUCTIONS AND PATIENT INSTRUCTED TO CALL FOR A FOLLOW UP APPOINTMENT WITH HER PRIMARY DOCTOR AND DENTIST FOR ORAL SURGERY SOON POSSIBLE AND SHE EXPRESSED UNDERSTANDING.PATIENT WAS INSTRUCTED TO CONTINUE WITH THE CLINDAMYCIN ORDERED AND SINCE HER BLOOD PRESSURE HAS BEEN HIGH SHE WILL NEED TO START LISONOPRIL AND THIS COULD BE ELECTRONICALLY SENT TO HER PHARMACY BUT PATIENTS DAUGHTER STATED NO WAY THAT THEY DO NOT WANT THE LISONOPRI AND THAT SHE WILL CONSULT WITH ANOTHER DOCTOR REGARDING HER HIGH BLOOD PRESSURE DISCHARGED WITH ALL HER PERSONAL BELONGINGS.
--- NOTE | 2017-09-02 15:10 | NUR ---
Spoke with daughter gildardo [phone]. Explained to daughter that pts own HOME meds Lomotrigrine, Clindamycin and Ferrous sulfate patient should already have. Daughter very aggressive and screaming over the phone and demanding to have a prescription for her mother. Deescalated daughter but not effective. Explained to daughter that Culturelle and Ferrous sulfate are OTC medications. The Lisinopril/HCTZ was discussed by dr bullock to pt. Pt states "IM NOT Hypertensive, I dont have High blood pressure, I will not take that medication." Offered Daughter that we can call in prescription to her preferred pharmacy. Daughter again demands that "i want a written prescription." Explained to daughter as well that [facility] cannot fill that prescription and that she will need to take this written prescription to a pharmacy. Daughter agreeable to pickle solution [facility] prescription [place].
== END 2017-09-02 13:10 | disposition home health service (06) | DRG 603 ==
LOC: ER 00:31 → MED 02:40
PROVIDERS: ADMIT Nurse Practitioner Acute Care; ATTEND Internal Medicine
DX: L03.211 Cellulitis of face (principal); G40.909 Epilepsy, unspecified, not intractable, without status epilepticus; D50.9 Iron deficiency anemia, unspecified; I10 Essential (primary) hypertension; Z88.2 Allergy status to sulfonamides; K02.9 Dental caries, unspecified; R59.0 Localized enlarged lymph nodes
CPT/HCPCS: 36415; 70487; 83735; 84100; 84443; 85025; 85730; 87040; 87070; 87806; 90715; A4663; J2543; J3370; J3490; J7040; J7050; J7060; Q9967